=== PATIENT | female | born 1965 ===

== ENCOUNTER 2020-03-24 19:30 | Observation (INO) | payer SELFPAY ==
[~2020-03-24] VITALS: Ht 162.6 cm; Wt 92.1 kg
--- NOTE | 2020-03-24 19:28 | NUR ---
RECEIEVED PATIENT TRANSPORTED VIA STRETCHER TRANSPORTED VIA MEDICAL TRANSPORT, PATIENT ORIENTED TO ROOM AND CALL LIGHT SYSTEM.
[2020-03-24 19:30] VITALS: BP 166/101
--- NOTE | 2020-03-24 19:50 | NUR ---
DR. BEDOLLA MADE AWARE OF PATIENTS ADMISSION.
--- NOTE | 2020-03-24 20:30 | NUR ---
PATIENT ALERT ORIENTED AMBULATORY, DENIES CHEST DISCOMFORTS, CURRENTLY SITTING IN CHAIR, WITH SALINE LOCK ON RAC G18 PATENT FLUSHES WELL, LBM 03/24, ADMISSION ASSESTMENT DONE.
[2020-03-24] MEDS ORDERED: LISINOPRIL40 MG PO (20:38)
[2020-03-24] MEDS ORDERED: ATORVASTATIN CA80 MG PO (20:39)
[2020-03-24] MEDS ORDERED: CLOPIDOGREL75 MG PO (20:39)
[2020-03-24] MEDS ORDERED: GABAPENTIN300 M2 (20:40)
[2020-03-24] MEDS ORDERED: LOPRESSOR 550 MG/TAB PO (20:41)
[2020-03-24] MEDS ORDERED: AMLODIPINE BESYL5 MG PO (20:41)
[2020-03-24] MEDS ORDERED: ASPIRIN ENTERIC81 MG PO (20:42)
[2020-03-24] MEDS ORDERED: BUPROPION HCL150 M2 PO (20:42)
[2020-03-24 23:50] VITALS: BP 158/95
--- NOTE | 2020-03-25 00:39 | NUR ---
PATIENT CURRENTLY RESTING IN BED WITH EYES CLOSED, BREATHING EVEN AND UNLABORED.
[2020-03-25 04:00] VITALS: BP 168/113
--- NOTE | 2020-03-25 04:10 | NUR ---
PATIENT C/O OF HEADACHE PRN TYLENOL GIVEN WITH PRN APRESOLINE, WILL REEVALUATE.
[2020-03-25 05:00] VITALS: BP 163/97
[2020-03-25 06:20] VITALS: BP 147/97
[2020-03-25 07:06] LABS: CHOLESTEROL HDL RATIO 3.3 (<4.4 (CALC))
--- NOTE | 2020-03-25 07:15 | NUR ---
REPORT RECEIVED FROM REMA PACHECO. PT SITTING UP IN BED CROSS LEGGED; ALERT AND OREINTED. DENIES PAIN. RESPIRATIONS EVEN AND UNLABORED ON ROOM AIR. BP ELEVATED; PT HAS FACIAL FLUSHING AND APPEARS TO HAVE MILD ANXIETY. OTHERWISE ASSESSMENT AND VS ARE WNL. PLAN OF CARE REVIEWED. PT ENCOURAGED TO VERABLIZE CONCERNS. STATES UNDERSTANDING. SAFETY MEASURES IN PLACE. CALL LIGHT WITHIN REACH.
[2020-03-25 08:00] VITALS: BP 167/104
--- NOTE | 2020-03-25 08:10 | NUR ---
AM MEDS GIVEN EARLY DUE TO ELEVATED BLOOD PRESSURE. PT SITTING UP ON EDGE OF BED EATING BREAKFAST. PRIOR NICOTINE PATCH REMOVED FROM LEFT SHOULDER AND NEW PATCH PLACED TO LEFT SHOULDER.
[2020-03-25 09:20] VITALS: BP 119/85
--- NOTE | 2020-03-25 09:21 | NUR ---
BLOOD PRESSURE IMPROVED AFTER SCHEDULED MEDICATIONS GIVEN. PT SITTING UP IN BEDSIDE CHAIR.
[2020-03-25 11:05] VITALS: BP 129/82
--- NOTE | 2020-03-25 11:32 | NUR ---
DR. BEDOLLA AT BEDSIDE.
--- NOTE | 2020-03-25 11:34 | NUR ---
PT OFF UNIT VIA WHEELCHAIR FOR ECHO.
--- NOTE | 2020-03-25 12:35 | NUR ---
IV site discontinued, cath intact. No edema , no redness, voices no discomfort.
--- NOTE | 2020-03-25 12:43 | NUR ---
Discharge instructions given. Patient verbalizes understanding of same. Discharged in stable condition via Ambulatory to Home with family. All belongings sent with pt.
== END 2020-03-25 12:41 | disposition home or self-care (01) | DRG 313 ==
LOC: MS2 19:30
PROVIDERS: ADMIT Internal Medicine; ATTEND Internal Medicine
DX: R07.9 Chest pain, unspecified (principal); M54.2 Cervicalgia; R68.84 Jaw pain; I25.10 Atherosclerotic heart disease of native coronary artery without angina pectoris; I10 Essential (primary) hypertension; J44.9 Chronic obstructive pulmonary disease, unspecified; M79.7 Fibromyalgia; E78.5 Hyperlipidemia, unspecified; G62.9 Polyneuropathy, unspecified; I25.2 Old myocardial infarction; F17.210 Nicotine dependence, cigarettes, uncomplicated; Z95.5 Presence of coronary angioplasty implant and graft; Z79.02 Long term (current) use of antithrombotics/antiplatelets; Z79.82 Long term (current) use of aspirin; Z20.828 Contact with and (suspected) exposure to other viral communicable diseases
CPT/HCPCS: G0378; G0379; J1650